=== PATIENT | female | born 1965 | race Caucasian/White ===

== ENCOUNTER 2017-04-26 12:48 | Emergency (ER) | payer MEDICAID ==
[~2017-04-26] VITALS: Ht 152.4 cm; Wt 108.4 kg
[2017-04-26 13:29] VITALS: BP 168/109; PULSE 89; RESP 18; TEMP 98.3; O2SAT 95
--- NOTE | 2017-04-26 13:38 | NUR ---
Patient to ER bed 04 to gown for evaluation. Side rails up.
--- NOTE | 2017-04-26 13:40 | NUR ---
ER at bedside examining patient.
[2017-04-26] MEDS ORDERED: BACITRACIN 1 GM OINT TP ONE (14:00)
[2017-04-26] MEDS ORDERED: LIDOCAINE 1% 10 MG/ML, 20 ML MDV INJ ONE (14:00)
--- NOTE | 2017-04-26 14:00 | NUR ---
PT PRESENTS TO ED C/O GREAT TOE PAIN . PT REPORTS SEEING [employer]STRATOR RECENTLY.
--- NOTE | 2017-04-26 14:10 | NUR ---
PT MEDICATED BY . RECEIVING TX FOR TOE
[2017-04-26] MEDS ORDERED: KETOROLAC TROMETHAMINE 60 MG/2 ML VIAL IM ONE (14:30)
[2017-04-26 14:50] VITALS: BP 158/92; PULSE 89; RESP 18; TEMP 98.3; O2SAT 95
--- NOTE | 2017-04-26 14:50 | NUR ---
Patient given written and verbal discharge instructions and verbalizes understanding. ER MD discussed with patient the results and treatment provided. Patient in stable condition. ID arm band removed. IV catheter removed intact and dressing applied, no active bleeding.RX: MUPIROCIN,IBUPROFEN,DOXYCYCLINE,KEFLEX given. Patient educated on pain management and to follow up with PMD. Pain Scale 2. Opportunity for questions provided and answered.
== END 2017-04-26 14:50 | disposition home or self-care (01) ==
LOC: SED 12:48
DX: L60.0 Ingrowing nail (principal); E78.00 Pure hypercholesterolemia, unspecified; Z88.2 Allergy status to sulfonamides; Z88.1 Allergy status to other antibiotic agents
CPT/HCPCS: 11750; 96372; 99284; J1885; J2001

== ENCOUNTER 2017-09-02 16:15 | Emergency (ER) | payer MEDICAID ==
[~2017-09-02] VITALS: Ht 152.4 cm; Wt 103.4 kg
[2017-09-02 16:31] VITALS: BP 134/91; PULSE 83; RESP 15; TEMP 97.3; O2SAT 96
[2017-09-02 17:44] LABS: BASOPHILS % (AUTO) 0.4 % (0.0-2.0); EOSINOPHILS # (AUTO) 0.2 K/uL (0.0-0.4); EOSINOPHILS % (AUTO) 1.5 % (0.0-4.0); HEMATOCRIT 41.5 % (36-48); HEMOGLOBIN 13.2 g/dL (12.0-16.0); LYMPHOCYTES # (AUTO) 2.9 K/uL (1.0-5.5); LYMPHOCYTES % (AUTO) 25.8 % (20.5-51.5); MEAN CORPUSCULAR HEMOGLOBIN 25 pg (27-31); MEAN CORPUSCULAR HGB CONC 32 % (32-36); MEAN CORPUSCULAR VOLUME 79 fL (79.0-98.0); MONOCYTES # (AUTO) 0.5 K/uL (0.0-1.0); MONOCYTES % (AUTO) 4.5 % (1.7-9.3); NEUTROPHILS # (AUTO) 7.4 K/uL (1.8-7.7); NEUTROPHILS % (AUTO) 67.8 % (40.0-70.0); PLATELET COUNT (AUTO) 229 K/uL (130-430); RED BLOOD CELL COUNT(AUTO) 5.26 MIL/uL (4.2-6.2); RED CELL DISTRIBUTION WIDTH 13.1 % (9.0-15.0); WHITE BLOOD COUNT (AUTO) 11.1 K/uL (4.8-10.8)
[2017-09-02 17:49] LABS: ANION GAP 11 (5-15); CALCIUM 9.2 mg/dL (8.4-11.0); CHLORIDE 102 mmol/L (98-107); CREATININE 0.74 mg/dL (0.55-1.30); GLUCOSE 117 mg/dL (70-99); POTASSIUM 3.6 mmol/L (3.5-5.1); SODIUM SERUM 141 mmol/L (136-145); UREA NITROGEN, BLOOD 17 mg/dL (8-21)
[2017-09-02 17:51] LABS: GFR AFRICAN AMERICAN 106 mL/min (>90)
[2017-09-02 18:06] LABS: ALANINE AMINOTRANSFERASE 57 U/L (12-78); ALBUMIN 3.4 g/dL (3.4-4.8); ASPARTATE AMINOTRANSFERASE 29 U/L (10-37); THYROID STIMULATING HORMONE 1.07 uIu/mL (0.36-3.74); TOTAL BILIRUBIN 0.4 mg/dL (0.0-1.0)
[2017-09-02 18:25] VITALS: BP 132/81; PULSE 70; RESP 15; TEMP 96.7; O2SAT 95
== END 2017-09-02 18:24 | disposition home or self-care (01) ==
LOC: SED 16:15
DX: F43.9 Reaction to severe stress, unspecified (principal); R53.1 Weakness; R41.0 Disorientation, unspecified; E11.9 Type 2 diabetes mellitus without complications; I10 Essential (primary) hypertension; E78.00 Pure hypercholesterolemia, unspecified; Z88.2 Allergy status to sulfonamides; Z88.1 Allergy status to other antibiotic agents
CPT/HCPCS: 36415; 70450-TC; 80053; 84443-TC; 84484; 85025; 93005; 99285

== ENCOUNTER 2017-09-10 07:04 | Emergency (ER) | payer MEDICAID ==
[~2017-09-10] VITALS: Ht 152.4 cm; Wt 103.4 kg
--- NOTE | 2017-09-10 07:05 | NUR ---
Patient to ER bed 7 to gown for evaluation. Side rails up. Report given to Mitali CID.
[2017-09-10] MEDS ORDERED: ONDANSETRON 4 MG ODT TAB PO ONE (07:15)
[2017-09-10] MEDS ORDERED: KETOROLAC TROMETHAMINE 30 MG VIAL IM ONE (07:15)
[2017-09-10 07:17] VITALS: BP_SYST 93
--- NOTE | 2017-09-10 07:20 | NUR ---
Pt presents to ED with "throbbing" left flank pain. Pt reports waking up with this pain at 5am. Denies trauma to left side. Pt reports having difficulty urinating x 2 days. Pt is crying aloud and gaurding left Ribs/Flank. Pt is A&O x4.
[2017-09-10 07:25] LABS: BILIRUBIN,URINE 1+ (NEGATIVE); BLOOD, URINE 1+ (NEGATIVE); CLARITY/URINE SL HAZY (CLEAR); COLOR,URINE YELLOW (YELLOW); GLUCOSE,URINE NEGATIVE (NEGATIVE); KETONES,URINE TRACE (NEGATIVE); LEUKOCYTE ESTERASE ,URINE 2+ (NEGATIVE); NITRITE, URINE NEGATIVE (NEGATIVE); PH,URINE 5.5 (5.0-8.0); PROTEIN URINE NEGATIVE (NEGATIVE); UROBILINOGEN,URINE 0.2 (0.2-1.0)
--- NOTE | 2017-09-10 07:28 | NUR ---
ER at bedside examining patient.
--- NOTE | 2017-09-10 07:29 | NUR ---
Admin medication as ordered. pt indio well.
[2017-09-10] MEDS ORDERED: NACL 0.9% 1,000 ML IV ONE (07:30)
--- NOTE | 2017-09-10 07:30 | NUR ---
# 20 gauge angiocath placed to left wrist. Use of asceptic technique. Opsite placed over site. Blood return noted. Blood for lab drawn from site. Flushed with 10 cc of normal saline. No evidence of infiltration noted. Patient tolerated well.
[2017-09-10 07:47] LABS: BASOPHILS % (AUTO) 0.4 % (0.0-2.0); EOSINOPHILS # (AUTO) 0.1 K/uL (0.0-0.4); EOSINOPHILS % (AUTO) 1.5 % (0.0-4.0); HEMATOCRIT 42.7 % (36-48); HEMOGLOBIN 13.4 g/dL (12.0-16.0); LYMPHOCYTES # (AUTO) 1.8 K/uL (1.0-5.5); LYMPHOCYTES % (AUTO) 19.9 % (20.5-51.5); MEAN CORPUSCULAR HEMOGLOBIN 25 pg (27-31); MEAN CORPUSCULAR HGB CONC 31 % (32-36); MEAN CORPUSCULAR VOLUME 78 fL (79.0-98.0); MONOCYTES # (AUTO) 0.4 K/uL (0.0-1.0); MONOCYTES % (AUTO) 4.6 % (1.7-9.3); NEUTROPHILS # (AUTO) 6.9 K/uL (1.8-7.7); NEUTROPHILS % (AUTO) 73.6 % (40.0-70.0); PLATELET COUNT (AUTO) 246 K/uL (130-430); RED BLOOD CELL COUNT(AUTO) 5.45 MIL/uL (4.2-6.2); RED CELL DISTRIBUTION WIDTH 13.3 % (9.0-15.0); WHITE BLOOD COUNT (AUTO) 9.2 K/uL (4.8-10.8)
--- NOTE | 2017-09-10 07:50 | NUR ---
Pt is no longer crying. Pt asked ' What did you give me? That pain med really worked!" Pt reports residual pain of 1/10, and tolerable
[2017-09-10 07:55] LABS: CALCIUM 9.7 mg/dL (8.4-11.0); CREATININE 0.77 mg/dL (0.55-1.30)
[2017-09-10 07:59] LABS: BACTERIA,URINE RARE /HPF (None Seen); CALCIUM OXALATE CRYSTALS,UR 0-10 /HPF (None Seen)
[2017-09-10 08:00] LABS: ALBUMIN 3.4 g/dL (3.4-4.8); TOTAL BILIRUBIN 0.5 mg/dL (0.0-1.0)
[2017-09-10] MEDS ORDERED: MORPHINE 2 MG/ML INJ. SYRINGE IVP ONE (08:45)
--- NOTE | 2017-09-10 09:48 | NUR ---
Patient given written and verbal discharge instructions and verbalizes understanding. ER MD discussed with patient the results and treatment provided. Patient in stable condition. ID arm band removed. IV catheter removed intact and dressing applied, no active bleeding. No Rx given. Patient educated on pain management and to follow up with PMD. Pain Scale 1/10 and tolerable. Opportunity for questions provided and answered.
[2017-09-10 09:50] VITALS: BP_SYST 130
== END 2017-09-10 09:50 | disposition home or self-care (01) ==
LOC: SED 07:04
DX: N21.1 Calculus in urethra (principal); N39.0 Urinary tract infection, site not specified; E11.9 Type 2 diabetes mellitus without complications; I10 Essential (primary) hypertension; E78.00 Pure hypercholesterolemia, unspecified; Z88.2 Allergy status to sulfonamides; Z88.8 Allergy status to other drugs, medicaments and biological substances
CPT/HCPCS: 36415; 74176; 80053; 81000; 85025; 87086; 96361; 96372; 96374; 99285; J1885; J2270; J7030; Q0162